=== PATIENT | female | born 1985 | race Hispanic/Latino ===

== ENCOUNTER 2024-05-19 10:19 | Emergency (ER) | payer OTHER ==
[~2024-05-19] VITALS: Ht 160 cm; Wt 82.6 kg
[~2024-05-19 10:19] MED LIST: PANTOPRAZOLE SO40 MG PO
[2024-05-19 10:25] VITALS: PULSE 95; RESP 15; TEMP 98.4; O2SAT 100
== END 2024-05-19 11:28 | disposition home or self-care (01) ==
LOC: ER 10:40
DX: H11.32 Conjunctival hemorrhage, left eye (principal); K21.9 Gastro-esophageal reflux disease without esophagitis
CPT/HCPCS: 99282